=== PATIENT | female | born 1985 | race Caucasian/White ===

== ENCOUNTER 2017-12-12 07:58 | Outpatient (CLI) | payer OTHER ==
[~2017-12-12 07:58] MED LIST: ATENOLOL25 MG PO; EFFEXOR; INDERAL; PROTONIX40 MG PO; YASMIN 28 TABLE1 TAB PO
== END 2017-12-12 08:08 | disposition home or self-care (01) ==
LOC: LAB 07:58
DX: N91.1 Secondary amenorrhea (principal); R82.79 Other abnormal findings on microbiological examination of urine

== ENCOUNTER 2017-12-12 08:23 | Outpatient (CLI) | payer OTHER | END 2017-12-12 08:41 | disposition home or self-care (01) | LOC: SONOGRAMA 08:23 → MAMO-SONO 09:15 | DX: R10.2 Pelvic and perineal pain (principal) ==

== ENCOUNTER 2017-12-12 15:07 | Outpatient (CLI) | payer OTHER | END 2017-12-12 15:59 | disposition home or self-care (01) | LOC: TOM 15:07 | DX: R10.9 Unspecified abdominal pain (principal) ==

== ENCOUNTER 2019-04-16 15:04 | Outpatient (CLI) | payer OTHER | END 2019-04-16 15:10 | disposition home or self-care (01) | LOC: MAMO-SONO 15:04 | DX: N60.12 Diffuse cystic mastopathy of left breast (principal); N60.11 Diffuse cystic mastopathy of right breast ==

== ENCOUNTER 2019-04-22 12:12 | Emergency (ER) | payer OTHER ==
[~2019-04-22] VITALS: Ht 157.5 cm; Wt 59.4 kg
[2019-04-22] MEDS ORDERED: AMBIEN10 MG PO (12:44)
[2019-04-22] MEDS ORDERED: CLONAZEPAM0.5 MG PO (12:45)
== END 2019-04-22 16:28 | disposition home or self-care (01) ==
LOC: ER 12:12
DX: R79.1 Abnormal coagulation profile (principal); D68.0 Von Willebrand disease

== ENCOUNTER 2021-05-03 10:21 | Outpatient (CLI) | payer OTHER ==
[~2021-05-03 10:21] MED LIST changes: +AMBIEN10 MG PO; +CLONAZEPAM0.5 MG PO
== END 2021-05-03 10:30 | disposition home or self-care (01) ==
LOC: SONOGRAMA 10:21 → MAMO-SONO 11:00
PROVIDERS: ATTEND Obstetrics & Gynecology
DX: N60.11 Diffuse cystic mastopathy of right breast (principal)

== ENCOUNTER 2024-10-28 08:51 | Outpatient (CLI) | payer OTHER | END 2024-10-28 09:01 | disposition home or self-care (01) | LOC: MAMO-SONO 08:51 | PROVIDERS: ATTEND Obstetrics & Gynecology | DX: N60.11 Diffuse cystic mastopathy of right breast (principal); N60.12 Diffuse cystic mastopathy of left breast ==